=== PATIENT | male | born 1960 | race Caucasian/White ===

== ENCOUNTER → 2017-07-07 | Outpatient (CLI) | payer OTHER ==
[~2017-07-07] MED LIST: ASCA500 PO; ASPI-435 PO; GLUC10007 PO; LYSI100010 PO; NSNN50 NAE; ZINC30TA3 PO
== END | disposition home or self-care (01) ==
LOC: C.LAB 09:37
PROVIDERS: ATTEND Internal Medicine
DX: Z77.011 Contact with and (suspected) exposure to lead (principal); E04.1 Nontoxic single thyroid nodule; Z11.59 Encounter for screening for other viral diseases